=== PATIENT | male | born 1970 | race Caucasian/White ===

== ENCOUNTER 2017-07-02 21:49 | Inpatient (IN) | payer BC ==
[~2017-07-02] VITALS: Ht 182.9 cm; Wt 102.2 kg
[2017-07-03] MEDS ORDERED: COZAAR50 MG PO (05:55)
[2017-07-03 06:14] VITALS: BP 136/87
[2017-07-03 12:15] VITALS: BP 113/78
[2017-07-03 15:29] VITALS: BP 123/75
[2017-07-03 20:17] VITALS: BP 121/78
[2017-07-03 23:34] VITALS: BP 110/63
[2017-07-04 07:47] VITALS: BP 135/84
[2017-07-04] MEDS ORDERED: ENDOCET 5-3251 EACH PO (08:16)
[2017-07-04] MEDS ORDERED: CYCLOBENZAPRINE10 MG PO (08:16)
== END 2017-07-04 09:15 | disposition home or self-care (01) | DRG 460 ==
LOC: ENRESERV 21:49 → 2SOUTH 07-03 05:33 → ENRESERV 07-03 08:54 → 2SOUTH 07-03 09:31 → 3EAST 07-03 12:10 → 2SOUTH 07-03 12:56 → 3EAST 07-04 09:15
PROC: 0SG30A0 Fusion of Lumbosacral Joint with Interbody Fusion Device, Anterior Approach, Anterior Column, Open Approach (ICD-10-PCS; principal; 2017-07-03)
DX: M51.37 Other intervertebral disc degeneration, lumbosacral region (principal); Z68.30 Body mass index [BMI] 30.0-30.9, adult; M43.00 Spondylolysis, site unspecified; I10 Essential (primary) hypertension; M54.16 Radiculopathy, lumbar region; M12.88 Other specific arthropathies, not elsewhere classified, other specified site
CPT/HCPCS: 36415; 72100; 76000; 80048; 85025; 86850; 86900; 86901; 93000; C1713; C1821; J0330; J0690; J1100; J1170; J2405; J2710; J2765; J3010; J3480

== ENCOUNTER → 2017-07-02 | Outpatient (CLI) | payer BC ==
[~2017-07-02] MED LIST: COZAAR50 MG PO; CYCLOBENZAPRINE10 MG PO; ENDOCET 5-3251 EACH PO
== END | disposition home or self-care (01) ==
LOC: CDC 11:17
DX: Z01.810 Encounter for preprocedural cardiovascular examination (principal); M43.00 Spondylolysis, site unspecified
CPT/HCPCS: 93000